=== PATIENT | female | born 1930 | race Caucasian/White ===

== ENCOUNTER 2016-08-05 01:51 | Emergency (ER) | payer MEDICARE, OTHER ==
[~2016-08-05] VITALS: Ht 175.3 cm; Wt 99.3 kg
--- NOTE | 2016-08-05 01:51 | NUR ---
PT BIB PA WITH A C/O ABNORMAL LABS. PT IS IN PERSISTENT VEGETATIVE STATE. PT HAS PORTEX 7 TRACH AND IS VENTED WITH THE FOLLOWING SETTINGS: AC10, TV 420, FIO2 40%, PEEP 5. PT IS ON THE MONITOR AND CONTINUOUS PULSE OX. PT HAS 24G IV IN RFA. IV FLUSHING WELL. PT HAS GTUBE. 14 FR IN AND OUT morales catheter inserted per sterile protocal. Immediate output 15ML of urine, color YELLOW, clarity CLEAR. SAMPLE SENT TO LAB. PT HAD LARGE LOOSE BM. PT WAS CLEANED AND NEW DIAPER APPLIED. REDNESS NOTED IN BILATERAL AXILLARY, UNDER BILATERAL BREASTS, BILATERAL AC, BILATERAL HANDS/PALMS, BILATERAL GROIN, BUTTOCK. PT HAS A WOUND ON RT FOOT AND 3+ PITTING EDEMA NOTED ON RT FOOT. BUE CONTRACUTRES AND BLE CONTRACTURES. RT AT THE BEDSIDE WITH VENT.
[2016-08-05 01:59] VITALS: BP 133/59
[2016-08-05] MEDS ORDERED: ACET650T10 GT (02:35)
[2016-08-05] MEDS ORDERED: CLOP75TA2 GT (02:35)
[2016-08-05] MEDS ORDERED: ASCO-340 GT (02:35)
[2016-08-05] MEDS ORDERED: CARB-93 GT (02:35)
[2016-08-05] MEDS ORDERED: METO25TA6 GT (02:35)
[2016-08-05] MEDS ORDERED: [UNRECOGNIZED DRUG - OTHER] IV (02:35)
[2016-08-05] MEDS ORDERED: MAGN400O6 GT (02:35)
[2016-08-05] MEDS ORDERED: SIMV5TAB2 GT (02:35)
[2016-08-05] MEDS ORDERED: FOLI1TAB16 GT (02:35)
[2016-08-05] MEDS ORDERED: DONE10TA44 GT (02:35)
[2016-08-05] MEDS ORDERED: HEPA0.5D3 SQ (02:35)
[2016-08-05] MEDS ORDERED: MULT1TAB73 GT (02:35)
[2016-08-05] MEDS ORDERED: MEMA10TA GT (02:35)
[2016-08-05] MEDS ORDERED: FERR-58 GT (02:35)
[2016-08-05] MEDS ORDERED: PRAM0.5T3 GT (02:35)
[2016-08-05] MEDS ORDERED: FURO-144 GT (02:35)
[2016-08-05] MEDS ORDERED: EPOE1VIA7 SQ (02:35)
[2016-08-05] MEDS ORDERED: DOCU-25 GT (02:35)
[2016-08-05] MEDS ORDERED: LACT1CAP61 GT (02:35)
[2016-08-05] MEDS ORDERED: IV NS 0.9% 2,000 ML ONE (02:39)
[2016-08-05] MEDS ORDERED: IV SET PRIMARY 1 EA INFUS.SET MC ONE (02:39)
[2016-08-05] MEDS ORDERED: PIPERACILLIN /TAZOBACTAM 3.375 G VIAL IV ONE (02:42)
[2016-08-05] MEDS ORDERED: IV SET PRIMARY PUMP SET 1 EA INFUS.SET MC ONE ×3 (02:42→02:44)
[2016-08-05] MEDS ORDERED: IV D5W 0 ML IV ONE (02:43)
--- NOTE | 2016-08-05 02:43 | NUR ---
started a saline lock on the right ac g18. Addendum: 08/05/16 at 0328 by MAURY left ac g18
[2016-08-05] MEDS ORDERED: VANCOMYCIN 1 GM VIAL ONE (02:45)
--- NOTE | 2016-08-05 02:46 | NUR ---
EKG CANCELLED BY DR. RAVI. NO EKG DONE.
[2016-08-05] MEDS ORDERED: VANCOMYCIN 1 GM in IV D5W 250 ML IV ONE (03:00)
[2016-08-05] MEDS ORDERED: LEVOFLOXACIN 750 MG /D5W 150ML 150 ML IV ONE (03:00)
[2016-08-05] MEDS ORDERED: IV NS 0.9% 1,000 ML BAG IV ONE (03:00)
[2016-08-05] MEDS ORDERED: PIPERACILLIN /TAZOBACTAM 3.375 G in IV D5W 50 ML IV ONE (03:00)
[2016-08-05 03:14] LABS: BASOPHILS % (AUTO) 0.2 % (0.0-2.0); EOSINOPHILS # (AUTO) 0.3 /CMM (0.0-0.7); EOSINOPHILS % (AUTO) 1.6 % (0.0-6.0); HEMATOCRIT 35 % (33-45); HEMOGLOBIN 11.1 g/dL (11.5-14.8); LYMPHOCYTES # (AUTO) 1.1 /CMM (0.8-4.8); MEAN CORPUSCULAR HEMOGLOBIN 31 PG (26.0-33.0); MEAN CORPUSCULAR HGB CONC 32 g/dl (31.0-36.0); MEAN CORPUSCULAR VOLUME 96 fL (82-100); MONOCYTES # (AUTO) 0.7 /CMM (0.1-1.30); MONOCYTES % (AUTO) 4.5 % (2.0-12.0); NEUTROPHILS # (AUTO) 13.9 /CMM (1.8-8.9); NEUTROPHILS % (AUTO) 86.7 % (43.0-81.0); PLATELET COUNT (AUTO) 283 /CMM (150-450); RDW COEFFICIENT OF VARIATION 17.3 (11.5-15.0); RED BLOOD CELL COUNT(AUTO) 3.63 MIL/uL (4.0-5.2)
[2016-08-05 03:21] LABS: ABG OXYGEN SATURATION 51.6 % (92.0-98.5); ABG PCO2 59.6 mmHg (35.0-45.0); ABG PH 7.371 (7.350-7.450); ABG PO2 29.7 mmHg (75.0-100.0); ABG TOTAL HEMOGLOBIN 11.3 G/dL (12.0-16.0); COHb 1.1 % (0.5-1.5); MetHb 0.6 % (0.0-1.5); O2Hb 50.7 % (94.0-97.0); PEEP,BG 5 cm H2O; VT, ABG 420 mL
[2016-08-05 03:30] LABS: APPEARANCE,URINE HAZY (CLEAR); COLOR,URINE YELLOW (YELLOW)
[2016-08-05 03:31] LABS: BILIRUBIN,URINE NEGATIVE (NEGATIVE); BLOOD, URINE NEGATIVE Ery/uL (NEGATIVE); KETONES,URINE NEGATIVE (NEGATIVE); NITRITE, URINE NEGATIVE (NEGATIVE); PROTEIN,URINE 1+ mg/dl (NEGATIVE); UGLUCOSE NEGATIVE (NEGATIVE); UROBILINOGEN,URINE 0.2 EU/dL (0.2)
[2016-08-05 03:32] LABS: LEUKOCYTE ESTERASE ,URINE TRACE (NEGATIVE)
[2016-08-05 03:34] LABS: ADD URINE CULTURE NO; ALBUMIN 1.7 g/dL (3.4-5.0); BACTERIA,URINE None seen /HPF (None Seen); BILIRUBIN,DIRECT 0.1 mg/dL (0.0-0.2); BILIRUBIN,TOTAL 0.4 mg/dL (0.2-1.0); CALCIUM, SERUM 9.3 mg/dL (8.5-10.1); CREATININE 2.2 mg/dL (0.6-1.3); POTASSIUM 3.8 mmol/L (3.5-5.1); RBC,URINE 0-2 /HPF (0-2); SQUAMOUS EPITHELIAL CELL,UR Few /HPF (None Seen); TOTAL PROTEIN, SERUM 7.7 g/dL (6.4-8.2); WBC,URINE 0-3 /HPF (0-3)
[2016-08-05 03:35] LABS: URINE AMORPHOUS URATE Moderate /HPF (None Seen)
[2016-08-05 03:36] LABS: LACTIC ACID 1.3 mmol/L (0.4-2.0)
--- NOTE | 2016-08-05 03:44 | NUR ---
DR. RAVI IS AT THE BEDSIDE.
--- NOTE | 2016-08-05 03:46 | NUR ---
CALLING [facility] FOR TRANSPORT BACK TO [facility].
--- NOTE | 2016-08-05 03:46 | NUR ---
[facility] WITH RT ETA = 45 MINS TO 1 HR.
--- NOTE | 2016-08-05 03:50 | NUR ---
IV FLUID STOPPED. PT REC'D 1 LITER NS ONLY.
[2016-08-05 04:02] LABS: INR 1.03 (0.87-1.13)
--- NOTE | 2016-08-05 04:40 | NUR ---
CALLED [facility] TO LET THEM KNOW THAT THE PT WAS RETURNING.
--- NOTE | 2016-08-05 04:45 | NUR ---
SPOKE TO [facility], INFORMED LAB TO CANCEL BLOOD CX PER DR. RAVI.
--- NOTE | 2016-08-05 04:48 | NUR ---
IV removed. Catheter intact and site benign. Pressure and 4x4 applied to site. No bleeding noted.
--- NOTE | 2016-08-05 04:50 | NUR ---
LAC BLEEDING WHERE IV WAS REMOVED. NEW DRSG APPLIED AND NO BLEEDING NOTED.
--- NOTE | 2016-08-05 04:50 | NUR ---
[facility] ARRIVED WITH RT. REPORT GIVEN TO EMT. COPY OF ALL LABS AND IMAGING FINDINGS GIVEN TO EMT. ACI GIVEN TO EMT WELL. Patient discharged to home in stable condition [facility]IA [facility]. Written and verbal after care instructions given. EMT verbalizes understanding of instruction. VSS.
[2016-08-05 04:54] VITALS: BP 133/56
--- NOTE | 2016-08-05 04:59 | NUR ---
LAC BLEEDING. DRSG CHANGED AND AREA COVERED WITH 4X4'S AND TAPE. NO BLEEDING NOTED. PT LEFT VIA AMBULANCE.
[2016-08-05 05:14] LABS: BAND % (MANUAL) 5 % (0.0-5.0); EOSINOPHILS % (MANUAL) 1 % (0-4); LYMPHOCYTES % (MANUAL) 10 % (16-48); MONOCYTES % (MANUAL) 4 % (0-11.0); NEUTROPHILS % (MANUAL) 80 (42-76); PLATELET ESTIMATE ADEQUATE
--- NOTE | 2016-08-07 20:11 | NUR ---
FACILITY NOTIFIED OF POSITIVE BLOOD CULTURE RESULT. SPOKE WITH [facility]. RESULT FAXED TO [phone]
== END 2016-08-05 05:00 | disposition home or self-care (01) ==
LOC: ER 02:01
DX: J18.9 Pneumonia, unspecified organism (principal); N39.0 Urinary tract infection, site not specified; R74.8 Abnormal levels of other serum enzymes; F03.90 Unspecified dementia, unspecified severity, without behavioral disturbance, psychotic disturbance, mood disturbance, and anxiety; I12.9 Hypertensive chronic kidney disease with stage 1 through stage 4 chronic kidney disease, or unspecified chronic kidney disease; N18.9 Chronic kidney disease, unspecified; I70.0 Atherosclerosis of aorta; E78.5 Hyperlipidemia, unspecified; G20 Parkinson's disease; Z99.11 Dependence on respirator [ventilator] status
CPT/HCPCS: 36415; 36600; 71010-TC; 80048-TC; 80076-TC; 81000-TC; 83605-TC; 85025-TC; 85730-TC; 87040-TC; 87081-TC; 87086-TC; A4606; J2543; J3370; J7030; J7060; Z7610

== ENCOUNTER 2016-12-22 10:59 | Emergency (ER) | payer MEDICARE, MEDICAID ==
[~2016-12-22] VITALS: Ht 170.2 cm; Wt 108.4 kg
[~2016-12-22 10:59] MED LIST: ACET650T10 GT; ASCO-340 GT; CARB-93 GT; CLOP75TA2 GT; DOCU-25 GT; DONE10TA44 GT; EPOE1VIA7 SQ; FERR-58 GT; FOLI1TAB16 GT; FURO-144 GT; HEPA0.5D3 SQ; LACT1CAP61 GT; MAGN400O6 GT; MEMA10TA GT; METO25TA6 GT; MULT1TAB73 GT; PRAM0.5T3 GT; SIMV5TAB2 GT; [UNRECOGNIZED DRUG - OTHER] IV
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
[2016-12-22 11:05] VITALS: BP 142/71
--- NOTE | 2016-12-22 11:05 | NUR ---
RT PT BROUGHT INTO ER, PT RECEIVED TRACHED WITH A PORTEX 7. PT PLACED ON HOSPITAL VENT WITH NOTED SETTINGS BY TRANSPORT RT. PT IS AWAKE AND RESPONDS TO STIMULI. VENT ALARMS ARE SET AND AUDIBLE WITH BVM BY BEDSIDE. COSMETOLOGY EDUCATOR CUFF PRESSURE NOTED. VENT IS PLUGGED INTO RED OUTLET. SX MODERATE THICK YELLOW SECRETIONS. NO RESPIRATORY DISTRESS NOTED AT THIS TIME, WILL CONTINUE TO MONITOR. Addendum: 12/22/16 at 1125 by AMARILYS SARABIA RT Amended: Links added.
[2016-12-22] MEDS ORDERED: PANTOPRAZOLE 40 MG VIAL ONE (11:17)
[2016-12-22] MEDS ORDERED: IV NS 0.9% 500 ML BAG IV ONE (11:30)
[2016-12-22] MEDS ORDERED: PANTOPRAZOLE 40 MG VIAL IV ONE (11:30)
--- NOTE | 2016-12-22 11:30 | NUR ---
NEW IV STARTED ON LEFT HAND, 20 G. BLOOD DRAWN AND SENT TO LAB. PATIENT MEDICATED PER MD ORDERS.
[2016-12-22] MEDS ORDERED: INSU100V3 SQ (11:35)
[2016-12-22] MEDS ORDERED: NA P133E RC (11:35)
[2016-12-22] MEDS ORDERED: HYDR100V IV (11:35)
[2016-12-22] MEDS ORDERED: BISA10SU8 RC (11:35)
[2016-12-22] MEDS ORDERED: ALBU2.5V13 IH (11:35)
[2016-12-22] MEDS ORDERED: BLOO-668 IN (11:35)
[2016-12-22] MEDS ORDERED: FAMO20VI10 IV (11:35)
[2016-12-22] MEDS ORDERED: ONDA4VIA30 IV (11:35)
[2016-12-22] MEDS ORDERED: FURO10VI IV (11:35)
[2016-12-22 11:40] LABS: BASOPHILS % (AUTO) 0.8 % (0.0-2.0); EOSINOPHILS # (AUTO) 0.2 /CMM (0.0-0.7); EOSINOPHILS % (AUTO) 5.2 % (0.0-6.0); HEMATOCRIT 30 % (33-45); HEMOGLOBIN 9.8 g/dL (11.5-14.8); LYMPHOCYTES # (AUTO) 0.5 /CMM (0.8-4.8); LYMPHOCYTES % (AUTO) 10.1 % (20.0-44.0); MEAN CORPUSCULAR HEMOGLOBIN 30 PG (26.0-33.0); MEAN CORPUSCULAR HGB CONC 33 g/dl (31.0-36.0); MEAN CORPUSCULAR VOLUME 92 fL (82-100); MONOCYTES # (AUTO) 0.2 /CMM (0.1-1.30); MONOCYTES % (AUTO) 3.4 % (2.0-12.0); NEUTROPHILS # (AUTO) 3.6 /CMM (1.8-8.9); NEUTROPHILS % (AUTO) 80.5 % (43.0-81.0); PLATELET COUNT (AUTO) 79 /CMM (150-450); RDW COEFFICIENT OF VARIATION 21.6 (11.5-15.0); RED BLOOD CELL COUNT(AUTO) 3.29 MIL/uL (4.0-5.2); WHITE BLOOD COUNT (AUTO) 4.5 K/uL (4.3-11.0)
[2016-12-22 11:49] LABS: CARBON DIOXIDE 30 mmol/L (21-32); CHLORIDE 112 mmol/L (98-107); CREATININE 2.7 mg/dL (0.6-1.3); GLUCOSE 107 mg/dL (74-106); POTASSIUM 4.6 mmol/L (3.5-5.1); SODIUM SERUM 149 mmol/L (136-145); UREA NITROGEN, BLOOD 61 mg/dL (7-18)
[2016-12-22 11:53] LABS: INR 1.08 (0.87-1.13); PROTHROMBIN TIME 11.2 SECS (9.5-12.7)
[2016-12-22 11:59] LABS: TROPONIN I 0.019 ng/mL (0.00-0.056)
--- NOTE | 2016-12-22 12:40 | NUR ---
REPORT GIVEN TO FAHAD PATIÑO FOR ADMISSION.
--- NOTE | 2016-12-22 13:07 | NUR ---
PAGED DR BARNES AT [id number].
--- NOTE | 2016-12-22 13:24 | NUR ---
CALLED FOR [facility] FOR TRANSPORT @ 1325, 45-60 MIN ETA. GONSALES
[2016-12-22 13:28] LABS: EOSINOPHILS % (MANUAL) 4 % (0-4); LYMPHOCYTES % (MANUAL) 7 % (16-48); MONOCYTES % (MANUAL) 6 % (0-11.0); NEUTROPHILS % (MANUAL) 83 (42-76)
[2016-12-22] MEDS ORDERED: IV NS 0.9% 1,000 ML BAG IV ONE (13:30)
[2016-12-22 14:18] VITALS: BP 111/68
--- NOTE | 2016-12-22 14:20 | NUR ---
REPORT GIVEN TO EMT. Patient discharged to [facility] in stable condition. Written and verbal after care instructions given to emt.
== END 2016-12-22 14:20 ==
LOC: ER 11:14
DX: I12.9 Hypertensive chronic kidney disease with stage 1 through stage 4 chronic kidney disease, or unspecified chronic kidney disease (principal); N18.9 Chronic kidney disease, unspecified; D64.9 Anemia, unspecified; E78.5 Hyperlipidemia, unspecified; F03.90 Unspecified dementia, unspecified severity, without behavioral disturbance, psychotic disturbance, mood disturbance, and anxiety; G20 Parkinson's disease; G93.40 Encephalopathy, unspecified; I70.0 Atherosclerosis of aorta; J90 Pleural effusion, not elsewhere classified; Z51.5 Encounter for palliative care; Z99.11 Dependence on respirator [ventilator] status
CPT/HCPCS: 36415; 71010; 80048; 83605; 84484; 85025; 85730; 87040 ×2; 87077; 93005; 96361; 96374; 99285; A4606; C9113; J7030; J7040; Z7610